=== PATIENT | female | born 1990 | race Hispanic/Latino ===

== ENCOUNTER 2018-03-21 07:08 | Emergency (ER) | payer MEDICAID, OTHER ==
[2018-03-21 07:19] VITALS: BP 147/85
[2018-03-21] MEDS ORDERED: NACL 0.9% 1000 ML 1,000 ML IV ONE (07:21)
[2018-03-21 07:41] LABS: Hematocrit 43.8 % (30.3-42.9); Hemoglobin 14.6 gm/dl (10.1-14.3); Mean Corpuscular HGB Conc 33 % (30-34); Mean Corpuscular Volume 88 fl (79-97); Platelet Count 250 K/mm3 (140-440); Red Blood Count 4.99 M/mm3 (3.65-5.03); Red Cell Distribution Width 14.1 % (13.2-15.2)
[2018-03-21 08:01] LABS: Alanine Aminotransferase 9 units/L (7-56); Albumin 4.5 g/dL (3.9-5); BUN/Creatinine Ratio 15; Blood Urea Nitrogen 9 mg/dL (7-17); Calcium 9.8 mg/dL (8.4-10.2); Hemolysis Index 10
[2018-03-21 10:19] LABS: Basophils % (Manual) 0 % (0.0-1.8); Eosinophils % (Manual) 0 % (0.0-4.3); Platelet Estimate Consistent w Auto; RBC Morphology Normal; Total Cells Counted 100
== END 2018-03-21 07:30 | disposition left against medical advice (07) ==
LOC: ED 07:08
DX: R11.2 Nausea with vomiting, unspecified (principal); Z53.21 Procedure and treatment not carried out due to patient leaving prior to being seen by health care provider
CPT/HCPCS: 36415; 80053; 83690; 85007; 85025

== ENCOUNTER 2018-05-20 01:19 | Emergency (ER) | payer MEDICAID ==
[2018-05-20] MEDS ORDERED: ZOFRAN ODT PO ONE (02:00)
[2018-05-20 02:23] VITALS: BP 120/55
[2018-05-20 02:33] LABS: Alanine Aminotransferase 11 units/L (7-56); Albumin 4.9 g/dL (3.9-5); BUN/Creatinine Ratio 9; Blood Urea Nitrogen 7 mg/dL (7-17); Calcium 10.3 mg/dL (8.4-10.2); Hemolysis Index 8
[2018-05-20 02:48] LABS: Hematocrit 46.4 % (30.3-42.9); Hemoglobin 15.3 gm/dl (10.1-14.3); Mean Corpuscular HGB Conc 33 % (30-34); Mean Corpuscular Volume 87 fl (79-97); Red Blood Count 5.35 M/mm3 (3.65-5.03)
[2018-05-20 02:49] LABS: Basophils % (Auto) 0.3 % (0.0-1.8); Lymphocytes # (Auto) 2.6 K/mm3 (1.2-5.4); Lymphocytes % (Auto) 18.1 % (13.4-35.0); Monocytes # (Auto) 0.6 K/mm3 (0.0-0.8); Monocytes % (Auto) 4.2 % (0.0-7.3); Platelet Count 221 K/mm3 (140-440); Red Cell Distribution Width 14.8 % (13.2-15.2)
[2018-05-20] MEDS ORDERED: NACL 0.9% 1000 ML 1,000 ML IV ONE (03:21)
[2018-05-20] MEDS ORDERED: TORADOL IV ONE (03:22)
[2018-05-20] MEDS ORDERED: REGLAN IV ONE (03:25)
[2018-05-20] MEDS ORDERED: TORADOL ONE (03:26)
[2018-05-20] MEDS ORDERED: NACL 0.9% 1000 ML 1,000 ML ONE (03:26)
[2018-05-20] MEDS ORDERED: REGLAN ONE (03:26)
--- NOTE | 2018-05-20 03:30 | Emergency Department Report ---
ED N/V/D HPI - General Chief complaint: Nausea/Vomiting/Diarrhea Stated complaint: NAUSEA VOMITING Time Seen by Provider: 05/20/18 03:13 Source: patient Mode of arrival: Wheelchair Limitations: No Limitations - History of Present Illness Initial comments: Pt is a 28 yo female who presents to the ED with c/o N/V/D that began two days ago. She states she has upper abdominal cramping. She denies any sick contacts, different foods, fever, hematemesis, hematochezia. The patient states she has been taking zofran ODT at home that she had left over with no relief. She states she also has dsyuria and urinary frequency. She denies any PSHx. The patient denies any ETOH use but does smoke 1/2 PPD. MD complaint: nausea, vomiting, diarrhea Description of Vomiting: watery Description of Diarrhea: water Location: LLQ, epigastric Radiation: none Severity: moderate Pain Scale: 5 Quality: cramping Consistency: constant Improves with: none Associated Symptoms: loss of appetite, nausea/vomiting, dysuria. denies: chest pain, cough, diaphoresis, fever/chills, headaches, rash, shortness of breath, syncope, weakness - Related Data Previous Rx's Medication Instructions Recorded Last Taken Type Acetaminophen [Tylenol Arthritis] 650 mg PO Q6HR PRN #30 tablet.er 03/23/18 Unknown Rx Ondansetron [Zofran Odt] 4 mg PO Q8HR PRN #20 tab.rapdis 03/23/18 Unknown Rx Promethazine [Phenergan SUPPOS] 50 mg [place] Q6H PRN #15 supp.rect 03/23/18 Unknown Rx Sucralfate [Carafate] 1 gm PO ACHS #120 udc 03/23/18 Unknown Rx Allergies Allergy/AdvReac Type Severity Reaction Status Date / Time buspirone [From BuSpar] Allergy Unknown Verified 03/23/18 13:53 latex Allergy Unknown Verified 03/23/18 13:53 tramadol Allergy Unknown Verified 03/23/18 13:53 ED Review of Systems ROS: Stated complaint: NAUSEA VOMITING Other details as noted in HPI Comment: All other systems reviewed and negative ED Past Medical Hx - Past Medical History Previous Medical History?: Yes Additional medical history: BARRETTS ESOPHAGEAL DISEASE - Surgical History Past Surgical History?: Yes Additional Surgical History: Hysterectomy - Social History Smoking Status: Current Every Day Smoker - Medications Home Medications: Home Medications Medication Instructions Recorded Confirmed Last Taken Type Acetaminophen [Tylenol Arthritis] 650 mg PO Q6HR PRN #30 tablet.er 03/23/18 Unknown Rx Ondansetron [Zofran Odt] 4 mg PO Q8HR PRN #20 tab.rapdis 03/23/18 Unknown Rx Promethazine [Phenergan SUPPOS] 50 mg [place] Q6H PRN #15 supp.rect 03/23/18 Unknown Rx Sucralfate [Carafate] 1 gm PO ACHS #120 udc 03/23/18 Unknown Rx ED Physical Exam - General Limitations: No Limitations General appearance: alert, other (actively vomiting) - Head Head exam: Present: atraumatic, normocephalic - Eye Eye exam: Present: normal appearance - ENT ENT exam: Present: mucous membranes dry (mildly ) - Respiratory Respiratory exam: Absent: respiratory distress - Cardiovascular Cardiovascular Exam: Present: regular rate - GI/Abdominal GI/Abdominal exam: Present: soft, tenderness (mild TTP of the LUQ and epig astric, otherwise normal ), normal bowel sounds. Absent: distended, guarding, rebound, rigid - Neurological Exam Neurological exam: Present: alert, oriented X3 - Psychiatric Psychiatric exam: Present: normal affect, normal mood - Skin Skin exam: Present: warm, dry, intact ED Course Vital Signs 05/20/18 01:37 Temperature 97.8 F Pulse Rate 60 Respiratory 18 Rate Blood Pressure 120/55 O2 Sat by Pulse 100 Oximetry ED Medical Decision Making - Lab Data Result diagrams: 05/20/18 01:51 05/20/18 01:51 Laboratory Results - last 24 hr 05/20/18 05/20/18 01:51 01:51 WBC 14.4 H RBC 5.35 H Hgb 15.3 H Hct 46.4 H MCV 87 MCH 29 MCHC 33 RDW 14.8 Plt Count 221 Lymph % (Auto) 18.1 [place] % (Auto) 4.2 Eos % (Auto) 0.0 Baso % (Auto) 0.3 Lymph # 2.6 [place] # 0.6 Eos # 0.0 Baso # 0.0 Seg Neutrophils % 77.4 H Seg Neutrophils # 11.1 H Sodium 140 Potassium 4.1 Chloride 99.6 Carbon Dioxide 19 L Anion Gap 26 BUN 7 Creatinine 0.8 Estimated GFR > 60 BUN/Creatinine Ratio 9 Glucose 127 H Calcium 10.3 H Total Bilirubin 1.30 H AST 15 ALT 11 Alkaline Phosphatase 77 Total Protein 7.5 Albumin 4.9 Albumin/Globulin Ratio 1.9 - Medical Decision Making No abd pain just cramping, no TTP no guarding no rebound, N/V resolved with reglan and zofran. Offered pt CT abd/pelvis pt declined, states she gets these sx and has frequent ER visits every 2-3 months Critical care attestation.: If time is entered above; I have spent that time in minutes in the direct care of this critically ill patient, excluding procedure time. ED Disposition Clinical Impression: Nausea vomiting and diarrhea Disposition: TO HOME OR SELFCARE Is pt being admited?: No Does the pt Need Aspirin: No Condition: Stable Instructions: Acute Nausea and Vomiting (ED) Additional Instructions: follow up with PCP in the next 2 days. Follow up with suboxone clinic. Return to ED if new/worsening sx or if sx do not improve. Ref[facility]: [facility] MD NICO [Primary Care Provider] - 3-5 Days Time of Disposition: 05:00 (Pt discharged home with Tsheet, given script for phenergan, discharged at 5:30 AM on 05/20/18) Print Language: TURKISH
[2018-05-20] MEDS ORDERED: ZOFRAN IV ONE (04:59)
[2018-05-20] MEDS ORDERED: ZOFRAN ONE (04:59)
[2018-05-20] MEDS ORDERED: BENADRYL ONE (05:16)
[2018-05-20] MEDS ORDERED: BENADRYL IV ONE (05:16)
== END 2018-05-20 07:00 | disposition home or self-care (01) ==
LOC: ED 01:19
DX: R11.2 Nausea with vomiting, unspecified (principal); R19.7 Diarrhea, unspecified; R30.0 Dysuria; R35.0 Frequency of micturition; R10.12 Left upper quadrant pain; F17.200 Nicotine dependence, unspecified, uncomplicated; Z90.710 Acquired absence of both cervix and uterus; Z91.040 Latex allergy status; Z88.5 Allergy status to narcotic agent
CPT/HCPCS: 36415; 80053; 85025; 96361; 96374; 96375; 99283; J1885; J2405; J2765; J7030; J1200; Q0162

== ENCOUNTER 2018-05-21 11:36 | Emergency (ER) | payer MEDICAID ==
[2018-05-21] MEDS ORDERED: REGLAN IV ONE (11:44)
[2018-05-21] MEDS ORDERED: NACL 0.9% 1000 ML 1,000 ML IV ONE ×2 (11:44→13:14)
--- NOTE | 2018-05-21 11:44 | Emergency Department Report ---
Blank Doc - Documentation Documentation: This is a 28-year-old female that presents with n/v and abdominal pain. Patient was her a few days for similar symptoms. Stated symptoms has not yet resolved. This initial assessment/diagnostic orders/clinical plan/treatment(s) is/are subject to change based on patient's health status, clinical progression and re- assessment by fellow clinical providers in the ED. Further treatment and workup at subsequent clinical providers discretion. Patient/guardians urged not to el ope from the ED as their condition may be serious if not clinically assessed and managed. Initial orders include: 1- Patient sent to [facility] for further evaluation and treatment 2- labs 3- UA
[2018-05-21] MEDS ORDERED: MORPHINE IV ONE (11:45)
[2018-05-21] MEDS ORDERED: BENADRYL IV ONE (12:29)
[2018-05-21 12:40] LABS: Basophils % (Auto) 0.3 % (0.0-1.8); Eosinophils % (Auto) 0.1 % (0.0-4.3); Hematocrit 41.9 % (30.3-42.9); Hemoglobin 14.2 gm/dl (10.1-14.3); Lymphocytes # (Auto) 3.3 K/mm3 (1.2-5.4); Lymphocytes % (Auto) 31.1 % (13.4-35.0); Mean Corpuscular HGB Conc 34 % (30-34); Mean Corpuscular Volume 87 fl (79-97); Monocytes # (Auto) 0.6 K/mm3 (0.0-0.8); Platelet Count 195 K/mm3 (140-440); Red Blood Count 4.84 M/mm3 (3.65-5.03); Red Cell Distribution Width 14.8 % (13.2-15.2)
[2018-05-21] MEDS ORDERED: ATIVAN IV ONE (12:59)
[2018-05-21 13:07] LABS: Alanine Aminotransferase 10 units/L (7-56); Albumin 4.3 g/dL (3.9-5); BUN/Creatinine Ratio 14; Blood Urea Nitrogen 10 mg/dL (7-17); Calcium 9.4 mg/dL (8.4-10.2); Hemolysis Index 8
[2018-05-21 13:11] LABS: Bilirubin,Direct < 0.2 mg/dL (0-0.2)
--- NOTE | 2018-05-21 13:14 | Emergency Department Report ---
ED Abdominal Pain HPI - General Chief Complaint: Nausea/Vomiting/Diarrhea Stated Complaint: NAUSEA/VOMIT Time Seen by Provider: 05/21/18 11:42 Source: patient Mode of arrival: Ambulatory Limitations: No Limitations - History of Present Illness Initial Comments: Megan is 28 yo female with hx of Cardenas's esophagus who presents with abdominal cramping and nausea/vomiting. These symptoms have occurred every 3-4 months for the past 10 years. She explains that she is normally treated in the [facility] system. Does not have a PCP. Recently had normal upper endoscopy performed by specialist at [facility] according to her report. Moderately severe pain in abdomen with severe nausea/vomiting. 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 MD Complaint: abdominal pain -: Gradual, days(s) (4) Location: diffuse Radiation: none Severity: moderate Severity scale (0 -10): 8 Quality: cramping Consistency: constant Improves With: nothing Worsens With: nothing Context: possible food poisoning Associated Symptoms: nausea, vomiting - Related Data Previous Rx's Medication Instructions Recorded Last Taken Type Acetaminophen [Tylenol Arthritis] 650 mg PO Q6HR PRN #30 tablet.er 03/23/18 Unknown Rx Ondansetron [Zofran Odt] 4 mg PO Q8HR PRN #20 tab.rapdis 03/23/18 Unknown Rx Promethazine [Phenergan SUPPOS] 50 mg [place] Q6H PRN #15 supp.rect 03/23/18 Unknown Rx Sucralfate [Carafate] 1 gm PO ACHS #120 udc 03/23/18 Unknown Rx Allergies Allergy/AdvReac Type Severity Reaction Status Date / Time buspirone [From BuSpar] Allergy Unknown Verified 05/21/18 11:37 latex Allergy Unknown Verified 05/21/18 11:37 tramadol Allergy Unknown Verified 05/21/18 11:37 ED Review of Systems ROS: Stated complaint: NAUSEA/VOMIT Other details as noted in HPI Comment: All other systems reviewed and negative Constitutional: denies: fever, malaise Cardiovascular: denies: chest pain Gastrointestinal: abdominal pain, nausea, vomiting ED Past Medical Hx - Past Medical History Previous Medical History?: Yes Additional medical history: BARRETTS ESOPHAGEAL DISEASE - Surgical History Past Surgical History?: Yes Additional Surgical History: x 3, emergency Hysterectomy immediately during due to complication - Social History Smoking Status: Never Smoker Substance Use Type: None - Medications Home Medications: Home Medications Medication Instructions Recorded Confirmed Last Taken Type Acetaminophen [Tylenol Arthritis] 650 mg PO Q6HR PRN #30 tablet.er 03/23/18 Unknown Rx Ondansetron [Zofran Odt] 4 mg PO Q8HR PRN #20 tab.rapdis 03/23/18 Unknown Rx Promethazine [Phenergan SUPPOS] 50 mg [place] Q6H PRN #15 supp.rect 03/23/18 Unknown Rx Sucralfate [Carafate] 1 gm PO ACHS #120 udc 03/23/18 Unknown Rx ED Physical Exam - General Limitations: No Limitations General appearance: alert, in no apparent distress, other (actively retching, ) - Head Head exam: Present: atraumatic, normocephalic - Eye Eye exam: Present: normal appearance - ENT ENT exam: Present: mucous membranes moist - Neck Neck exam: Present: normal inspection, full ROM. Absent: tenderness, meningis mus - Respiratory Respiratory exam: Present: normal lung sounds bilaterally. Absent: respiratory distress, wheezes, rales, rhonchi - Cardiovascular Cardiovascular Exam: Present: regular rate, normal rhythm, normal heart sounds. Absent: systolic murmur, diastolic murmur, rubs, gallop - GI/Abdominal GI/Abdominal exam: Present: soft, normal bowel sounds. Absent: distended, tenderness, guarding, rebound - Extremities Exam Extremities exam: Present: normal inspection - Back Exam Back exam: Present: normal inspection - Neurological Exam Neurological exam: Present: alert, oriented X3 - Psychiatric Psychiatric exam: Present: anxious - Skin Skin exam: Present: warm, dry, intact, normal color. Absent: rash ED Course Vital Signs 05/21/18 11:50 Temperature 97.6 F Pulse Rate 71 Respiratory 16 Rate Blood Pressure 147/93 [Left] O2 Sat by Pulse 96 Oximetry ED Medical Decision Making - Lab Data Result diagrams: 05/21/18 12:25 05/21/18 12:25 Laboratory Results - last 24 hr 05/21/18 05/21/18 12:25 12:25 WBC 10.7 RBC 4.84 Hgb 14.2 Hct 41.9 MCV 87 MCH 29 MCHC 34 RDW 14.8 Plt Count 195 Lymph % (Auto) 31.1 [place] % (Auto) 6.0 Eos % (Auto) 0.1 Baso % (Auto) 0.3 Lymph # 3.3 [place] # 0.6 Eos # 0.0 Baso # 0.0 Seg Neutrophils % 62.5 Seg Neutrophils # 6.7 Sodium 139 Potassium 3.0 L D Chloride 102.1 Carbon Dioxide 17 L Anion Gap 23 BUN 10 Creatinine 0.7 Estimated GFR > 60 BUN/Creatinine Ratio 14 Glucose 126 H Calcium 9.4 Total Bilirubin 0.70 Direct Bilirubin < 0.2 Indirect Bilirubin 0.5 AST 12 ALT 10 Alkaline Phosphatase 57 Total Protein 7.2 Albumin 4.3 Albumin/Globulin Ratio 1.5 Lipase 23 - Medical Decision Making Ms. Last is a 28 yo female with hx of Cardenas's esophagus with 10 year hx of GI symptoms ?IBS ?cyclical vomiting syndrome ?IBD Prescribed promethazine suppositories and potassium chloride WBC has decreased since last visit dehydration and gastric fluid loss noted with Bicarbonate 17 and potassium 3.0 Critical care attestation.: If time is entered above; I have spent that time in minutes in the direct care of this critically ill patient, excluding procedure time. ED Disposition Clinical Impression: Nausea & vomiting, Abdominal pain Disposition: DC-01 TO HOME OR SELFCARE Is pt being admited?: No Does the pt Need Aspirin: No Condition: Stable Additional Instructions: Please see a primary physician as soon as you can. Referrals: [facility] [Other] - 3-5 Days BERTIN MEDINA DO [Staff Physician] - 3-5 Days
[2018-05-21 15:10] LABS: HCG Qualitative,Urine Negative (Negative)
[2018-05-21 15:13] LABS: Bilirubin,Urine NEG (Negative); Blood,Urine NEG (Negative); Color,Urine Yellow (Yellow); Mucus,Urine 1+ /HPF
[2018-05-21 15:35] VITALS: BP 136/84
== END 2018-05-21 15:46 | disposition home or self-care (01) ==
LOC: ED 11:36
DX: R10.84 Generalized abdominal pain (principal); R11.2 Nausea with vomiting, unspecified; Z90.710 Acquired absence of both cervix and uterus; Z88.8 Allergy status to other drugs, medicaments and biological substances; Z88.6 Allergy status to analgesic agent; Z91.040 Latex allergy status
CPT/HCPCS: 36415; 80048; 80076; 81001; 81025; 83690; 85025; 96361; 96374; 96375; 99284; J1200; J2060; J2270; J2765; J7030